=== PATIENT | female | born 1990 | race Caucasian/White ===

== ENCOUNTER 2017-04-21 06:03 | Emergency (ER) | payer BC ==
[~2017-04-21] VITALS: Ht 167.6 cm; Wt 102.3 kg
[2017-04-21 06:08] VITALS: TEMP 98
[2017-04-21] MEDS ORDERED: ZANAFLEX 4MG TAB4 MG PO (06:12)
[2017-04-21] MEDS ORDERED: AMBIEN 5MG TABLE5 MG PO (06:12)
[2017-04-21] MEDS ORDERED: XANAX 0.5MG0.5 MG PO (06:13)
[2017-04-21] MEDS ORDERED: TOPAMAX 100MG100 M1 PO (06:13)
[2017-04-21 07:42] LABS: BASO % 0.4 % (0.0-2.0); EOS # 0.1 (0.0-0.7); EOS % 1.1 % (0-4.0); GRAN # 3.4 (1.4-6.5); GRAN % 42.3 % (42.2-75.2); HEMATOCRIT 39.1 % (37.0-47.0); HEMOGLOBIN 13.2 g/dl (12.5-16.0); LYMPH # 3.7 (1.2-3.4); MEAN CELL VOLUME 91 fl (80.0-100.0); MEAN CORPUSCULAR HEMOGLOBIN 31 pg (27.0-31.0); MEAN CORPUSCULAR HGB CONC 34 g/dl (33.0-37.0); MEAN PLATELET VOLUME 12.1 fl (7.4-10.4); MONO # 0.7 (0.1-0.6); MONO % 9.1 % (1.7-9.3); PLATELET COUNT 260 K/mm3 (130-400); RED BLOOD COUNT 4.28 M/mm3 (4.10-5.30); REDCELL DISTRIBUTION WIDTH-CV 12.6 % (11.5-14.5); WHITE BLOOD COUNT 7.9 K/mm3 (4.8-10.8)
[2017-04-21 08:05] LABS: ADJUSTED CALCIUM 9.3 mg/dL (8.4-10.2); ALBUMIN 4.3 gm/dL (3.5-5.0); BILIRUBIN,TOTAL 0.6 mg/dL (0.0-1.0); CALCIUM 9.5 mg/dL (8.4-10.2); CREATININE, serum 0.83 mg/dL (0.52-1.25); POTASSIUM 3.7 mmol/L (3.4-5.0); TOTAL PROTEIN 7.2 gm/dL (6.4-8.2)
[2017-04-21 11:15] VITALS: BP 132/81; PULSE 66
== END 2017-04-21 11:15 | disposition home or self-care (01) ==
LOC: COL.ER 06:03
PROVIDERS: Emergency Medicine
DX: R55 Syncope and collapse (principal); R51 Headache; R53.83 Other fatigue; R42 Dizziness and giddiness; R11.0 Nausea; G43.909 Migraine, unspecified, not intractable, without status migrainosus
CPT/HCPCS: J1885; J2270; J2405; J7030

== ENCOUNTER 2017-08-25 17:41 | Emergency (ER) | payer BC ==
[~2017-08-25] VITALS: Ht 167.6 cm; Wt 104.5 kg
[~2017-08-25 17:41] MED LIST: AMBIEN 5MG TABLE5 MG PO; TOPAMAX 100MG100 M1 PO; XANAX 0.5MG0.5 MG PO; ZANAFLEX 4MG TAB4 MG PO
[2017-08-25 17:43] VITALS: BP 134/86; TEMP 99.6
[2017-08-25 19:12] LABS: COLLECTION METHOD CLEAN CATCH
[2017-08-25 19:18] LABS: MUCOUS Present /lpf; PH 6 (5-8); URINE APPEARANCE Hazy; URINE BACTERIA None Seen /hpf; URINE BILIRUBIN Negative (NEGATIVE); URINE BLOOD Negative (NEGATIVE); URINE COLOR Yellow; URINE GLUCOSE Negative (NEGATIVE); URINE KETONE Negative (NEGATIVE); URINE LEUKOCYTE ESTERASE 2+ (NEGATIVE); URINE NITRATE Negative (NEGATIVE); URINE PROTEIN(semi-quant) Negative (NEGATIVE); URINE RBC 0-2 /hpf; URINE UROBILINOGEN Negative (NEGATIVE)
[2017-08-25 20:32] VITALS: PULSE 85
[2017-08-25] MEDS ORDERED: PRENATAL PO (21:22)
== END 2017-08-25 20:32 | disposition home or self-care (01) ==
LOC: COL.ER 17:41
PROVIDERS: Nurse Practitioner
DX: O26.891 Other specified pregnancy related conditions, first trimester (principal); R10.2 Pelvic and perineal pain; O99.341 Other mental disorders complicating pregnancy, first trimester; F41.9 Anxiety disorder, unspecified; Z3A.08 8 weeks gestation of pregnancy; Z90.49 Acquired absence of other specified parts of digestive tract

== ENCOUNTER 2018-01-29 08:58 | Emergency (ER) | payer BC ==
[~2018-01-29] VITALS: Ht 167.6 cm; Wt 111.4 kg
[~2018-01-29 08:58] MED LIST changes: +PRENATAL PO
[2018-01-29 09:54] LABS: COLLECTION METHOD CLEAN CATCH
[2018-01-29 09:59] LABS: MUCOUS Present /lpf; PH 5 (5-8); URINE APPEARANCE Clear; URINE BACTERIA Rare /hpf; URINE BILIRUBIN Negative (NEGATIVE); URINE BLOOD Negative (NEGATIVE); URINE COLOR Yellow; URINE GLUCOSE Negative (NEGATIVE); URINE KETONE Negative (NEGATIVE); URINE LEUKOCYTE ESTERASE Trace (NEGATIVE); URINE NITRATE Negative (NEGATIVE); URINE PROTEIN(semi-quant) Negative (NEGATIVE); URINE RBC 0-2 /hpf
[2018-01-29 12:14] VITALS: BP 95/74; PULSE 82; TEMP 99.8
== END 2018-01-29 12:34 | disposition home or self-care (01) ==
LOC: COL.ER 08:58
PROVIDERS: Emergency Medicine
DX: O99.353 Diseases of the nervous system complicating pregnancy, third trimester (principal); G43.909 Migraine, unspecified, not intractable, without status migrainosus; Z90.89 Acquired absence of other organs; Z90.49 Acquired absence of other specified parts of digestive tract; Z3A.31 31 weeks gestation of pregnancy
CPT/HCPCS: J1200; J2405; J2550; J7030; J7040

== ENCOUNTER 2018-03-18 03:19 | Outpatient (CLI) | payer BC ==
[~2018-03-18] VITALS: Ht 167.6 cm; Wt 122.7 kg
[2018-03-18] MEDS ORDERED: ZOLOFT 50MG50 MG PO (03:43)
[2018-03-18] MEDS ORDERED: PROTONIX 40MG T40 MG PO (03:43)
[2018-03-18] MEDS ORDERED: TYLENOL PM EXTR1 TA1 PO (03:44)
[2018-03-18 04:10] VITALS: BP 135/81; PULSE 113; TEMP 98.4
== END 2018-03-18 04:25 | disposition home or self-care (01) ==
LOC: LDRO 03:19
DX: Z34.93 Encounter for supervision of normal pregnancy, unspecified, third trimester (principal); Z3A.37 37 weeks gestation of pregnancy

== ENCOUNTER 2018-03-30 11:25 | Inpatient (IN) | payer BC ==
[~2018-03-30] VITALS: Ht 167.6 cm; Wt 123.2 kg
[~2018-03-30 11:25] MED LIST changes: +PROTONIX 40MG T40 MG PO; +TYLENOL PM EXTR1 TA1 PO; +ZOLOFT 50MG50 MG PO
[2018-04-01 19:35] LABS: BASO % 0.2 % (0.0-2.0); EOS # 0.1 (0.0-0.7); EOS % 0.6 % (0-4.0); GRAN % 63.8 % (42.2-75.2); HEMATOCRIT 37.6 % (37.0-47.0); HEMOGLOBIN 12.9 g/dl (12.5-16.0); LYMPH % 23.7 % (20.0-51.0); MEAN CELL VOLUME 92 fl (80.0-100.0); MEAN CORPUSCULAR HEMOGLOBIN 32 pg (27.0-31.0); MEAN CORPUSCULAR HGB CONC 34 g/dl (33.0-37.0); MONO # 1.4 (0.1-0.6); MONO % 11.2 % (1.7-9.3); PLATELET COUNT 226 K/mm3 (130-400); RED BLOOD COUNT 4.09 M/mm3 (4.10-5.30); REDCELL DISTRIBUTION WIDTH-CV 13.9 % (11.5-14.5)
[2018-04-01 19:50] VITALS: BP 139/82; PULSE 111; TEMP 98.9
[2018-04-01 20:30] VITALS: BP 137/81; PULSE 94
[2018-04-01 21:00] VITALS: BP 137/69; PULSE 93
[2018-04-01 21:30] VITALS: BP 138/77; PULSE 89
[2018-04-01 22:00] VITALS: BP 129/86; PULSE 116; TEMP 99
[2018-04-02] VITALS (54 sets, daily range): BP systolic 102–144; BP diastolic 55–99; PULSE 70–121; TEMP 97.8–99
[2018-04-03] VITALS (20 sets, daily range): BP systolic 81–134; BP diastolic 49–95; PULSE 90–133; TEMP 98.2–99.2
[2018-04-04 06:48] LABS: HEMATOCRIT 33.4 % (37.0-47.0); HEMOGLOBIN 10.9 g/dl (12.5-16.0)
[2018-04-04 07:34] VITALS: BP 134/78; PULSE 76; TEMP 98.1
[2018-04-04] MEDS ORDERED: IBU600 MG PO (13:52)
[2018-04-04] MEDS ORDERED: PERCOCET 325 MG1 TA2 PO (13:53)
[2018-04-04 16:53] VITALS: BP 120/78; PULSE 80; TEMP 98.1
[2018-04-04 20:50] VITALS: BP 115/53; PULSE 114; TEMP 99.1
[2018-04-05 07:15] VITALS: BP 117/58; PULSE 94; TEMP 98.9
== END 2018-04-05 13:43 | disposition home or self-care (01) | DRG 766 ==
LOC: LDR 11:25 → OB 04-03 02:15
PROVIDERS: Obstetrics & Gynecology
PROC: 3E0P7VZ Introduction of Hormone into Female Reproductive, Via Natural or Artificial Opening (ICD-10-PCS; 2018-04-01)
PROC: 10D00Z1 Extraction of Products of Conception, Low, Open Approach (ICD-10-PCS; principal; 2018-04-02)
PROC: 3E033VJ Introduction of Other Hormone into Peripheral Vein, Percutaneous Approach (ICD-10-PCS; 2018-04-02)
DX: O13.4 Gestational [pregnancy-induced] hypertension without significant proteinuria, complicating childbirth (principal); Z3A.39 39 weeks gestation of pregnancy; Z37.0 Single live birth; O62.1 Secondary uterine inertia; O99.824 Streptococcus B carrier state complicating childbirth; O99.214 Obesity complicating childbirth; O99.344 Other mental disorders complicating childbirth; F41.8 Other specified anxiety disorders; O69.81X0 Labor and delivery complicated by cord around neck, without compression, not applicable or unspecified
CPT/HCPCS: J0595; J0690; J1200; J1885; J2175; J2270; J2370; J2405; J2540; J2590; J2795; J7120

== ENCOUNTER 2018-04-09 16:15 | Emergency (ER) | payer BC ==
[~2018-04-09] VITALS: Ht 167.6 cm; Wt 118.2 kg
[~2018-04-09 16:15] MED LIST changes: +IBU600 MG PO; +PERCOCET 325 MG1 TA2 PO
[2018-04-09] MEDS ORDERED: PROTONIX 40MG T40 MG PO (16:36)
[2018-04-09 16:51] LABS: BASO % 0.3 % (0.0-2.0); EOS # 0.6 (0.0-0.7); EOS % 5.3 % (0-4.0); GRAN # 7.1 (1.4-6.5); GRAN % 66.6 % (42.2-75.2); LYMPH # 1.6 (1.2-3.4); LYMPH % 15.2 % (20.0-51.0); MEAN CELL VOLUME 94 fl (80.0-100.0); MEAN CORPUSCULAR HGB CONC 34 g/dl (33.0-37.0); MEAN PLATELET VOLUME 10.8 fl (7.4-10.4); MONO # 1.3 (0.1-0.6); MONO % 12.2 % (1.7-9.3); PLATELET COUNT 288 K/mm3 (130-400); REDCELL DISTRIBUTION WIDTH-CV 13.6 % (11.5-14.5)
[2018-04-09 16:54] LABS: HEMATOCRIT 28.1 % (37.0-47.0); HEMOGLOBIN 9.4 g/dl (12.5-16.0); MEAN CORPUSCULAR HEMOGLOBIN 31 pg (27.0-31.0)
[2018-04-09 17:03] LABS: ALBUMIN 2.9 gm/dL (3.5-5.0); BILIRUBIN,TOTAL 0.3 mg/dL (0.0-1.0); CALCIUM 8.2 mg/dL (8.4-10.2); CREATININE, serum 0.78 mg/dL (0.52-1.25); POTASSIUM 3.8 mmol/L (3.4-5.0); TOTAL PROTEIN 5.9 gm/dL (6.4-8.2)
[2018-04-09 17:45] VITALS: BP 129/64; PULSE 100; TEMP 99.4
== END 2018-04-09 17:45 | disposition home or self-care (01) ==
LOC: COL.ER 16:15
PROVIDERS: Family Medicine
DX: O99.89 Other specified diseases and conditions complicating pregnancy, childbirth and the puerperium (principal); R60.9 Edema, unspecified; G89.18 Other acute postprocedural pain; O99.63 Diseases of the digestive system complicating the puerperium; K21.9 Gastro-esophageal reflux disease without esophagitis; Z98.890 Other specified postprocedural states

== ENCOUNTER 2018-08-10 11:52 | Emergency (ER) | payer BC ==
[~2018-08-10] VITALS: Ht 167.6 cm; Wt 113.6 kg
[2018-08-10 12:06] VITALS: TEMP 98.2
[2018-08-10] MEDS ORDERED: TOPAMAX 100MG100 M1 PO (14:09)
[2018-08-10] MEDS ORDERED: ULTRAM 50MG TAB50 MG PO (14:10)
[2018-08-10 17:57] VITALS: BP 109/57; PULSE 82
== END 2018-08-10 17:51 | disposition home or self-care (01) ==
LOC: COL.ER 11:52
DX: G43.909 Migraine, unspecified, not intractable, without status migrainosus (principal); F41.9 Anxiety disorder, unspecified; F32.9 Major depressive disorder, single episode, unspecified; K21.9 Gastro-esophageal reflux disease without esophagitis; Z90.49 Acquired absence of other specified parts of digestive tract; Z90.89 Acquired absence of other organs
CPT/HCPCS: J0780; J1170; J1885; J2405; J7030

== ENCOUNTER 2019-05-31 14:44 | Emergency (ER) | payer BC ==
[~2019-05-31] VITALS: Ht 167.6 cm; Wt 109.1 kg
[~2019-05-31 14:44] MED LIST changes: +ULTRAM 50MG TAB50 MG PO
[2019-05-31 14:59] VITALS: BP 136/68; TEMP 98.3
[2019-05-31 17:10] VITALS: PULSE 86
== END 2019-05-31 17:10 | disposition home or self-care (01) ==
LOC: COL.ER 14:44
DX: G43.909 Migraine, unspecified, not intractable, without status migrainosus (principal); F32.9 Major depressive disorder, single episode, unspecified
CPT/HCPCS: J0780; J1170; J1200; J1885; J7030

== ENCOUNTER 2020-03-20 09:46 | Emergency (ER) | payer BC ==
[~2020-03-20] VITALS: Ht 167.6 cm; Wt 106.8 kg
[2020-03-20 10:05] VITALS: TEMP 98.6
[2020-03-20] MEDS ORDERED: SPRINTEC 35 MCG1 TAB PO (11:06)
[2020-03-20 12:27] VITALS: BP 106/74; PULSE 66
== END 2020-03-20 12:29 | disposition home or self-care (01) ==
LOC: COL.ER 09:46
DX: G43.909 Migraine, unspecified, not intractable, without status migrainosus (principal); Z82.0 Family history of epilepsy and other diseases of the nervous system
CPT/HCPCS: J1200; J1885; J2550; J7030